=== PATIENT | female | born 1980 | race African-American/Black ===

== ENCOUNTER 2019-08-30 18:41 | Emergency (ER) | payer OTHER, MEDICAID ==
[~2019-08-30] VITALS: Ht 167.6 cm; Wt 90.0 kg
[2019-08-31] MEDS ORDERED: TRAMADOL 50MG TABLET PO ONE (00:45)
[2019-08-31] MEDS ORDERED: CLONIDINE 0.2MG TABLET PO ONE (00:45)
[2019-08-31] MEDS ORDERED: HYDROCODONE/ACETAMINOPHEN 5/325MG TABLET PO ONE (01:00)
[2019-08-31 01:18] LABS: CHLORIDE 107 mEq/L (98-107)
[2019-08-31 04:18] VITALS: BP 159/85
== END 2019-08-31 04:23 | disposition home or self-care (01) ==
LOC: ER 18:41
DX: K43.9 Ventral hernia without obstruction or gangrene (principal); D25.9 Leiomyoma of uterus, unspecified; E87.6 Hypokalemia; I10 Essential (primary) hypertension; F12.10 Cannabis abuse, uncomplicated; Z98.51 Tubal ligation status
CPT/HCPCS: 36415; 80307; 99283

== ENCOUNTER 2025-06-16 13:48 | Emergency (ER) | payer OTHER ==
[~2025-06-16] VITALS: Ht 172.7 cm; Wt 78.0 kg
[~2025-06-16 13:48] MED LIST: AMLO10TA80 PO; ASPI-1160 PO; DOCU100T PO; LIP40 PO
[2025-06-16 13:50] VITALS: O2SAT 99
[2025-06-16 14:39] LABS: BASOPHILS % 0.8 % (0.0-2.0); EOSINOPHILS % 1.6 % (0.0-5.0); HEMATOCRIT. 39.7 % (36.0-48.0); HEMOGLOBIN. 13.8 g/dL (12.0-16.0); LYMPHOCYTES % 37.6 % (20.0-50.0); MEAN PLATELET VOLUME 8.0 fl (7.4-10.4); MONOCYTES % 9.1 % (2.0-8.0); NEUTROPHILS % 50.9 % (40.0-76.0); PLATELET 231 x1000/uL (130-400); RED BLOOD CELL COUNT 4.57 mill/uL (4.2-5.4); RED CELL DISTRIBUTION WIDTH 13.3 % (11.6-14.6)
[2025-06-16 14:52] LABS: CREATININE 0.9 mg/dL (0.6-1.0); UREA NITROGEN BLOOD 13 mg/dL (9-23)
[2025-06-16 17:33] VITALS: BP 155/105; PULSE 51; RESP 18; TEMP 36.7; O2SAT 99
[2025-06-16 17:36] LABS: TROPONIN I HIGH SENSITIVITY 11 ng/L (3.0-34)
[2025-06-16 17:37] LABS: ASPARTATE AMINOTRANSFERASE 24 IU/L (<34); BILIRUBIN DIRECT < 0.1 mg/dL (<=3.0); BILIRUBIN TOTAL 0.3 mg/dL (0.1-1.0); PROTEIN TOTAL 7.2 g/dL (6.0-8.3)
[2025-06-16 18:06] LABS: INR 1.0
== END 2025-06-16 19:39 | disposition home or self-care (01) ==
LOC: ER 13:48
DX: R07.89 Other chest pain (principal); R20.2 Paresthesia of skin; I10 Essential (primary) hypertension; J45.909 Unspecified asthma, uncomplicated; F12.10 Cannabis abuse, uncomplicated; Z88.1 Allergy status to other antibiotic agents; Z88.5 Allergy status to narcotic agent; Z88.0 Allergy status to penicillin; Z79.899 Other long term (current) drug therapy; Z79.82 Long term (current) use of aspirin; Z98.51 Tubal ligation status
CPT/HCPCS: 36415; 71045; 80048; 80076; 84484; 85025; 93005; 99285